=== PATIENT | female | born 1940 | race Caucasian/White ===

== ENCOUNTER → 2017-02-13 | Outpatient (CLI) | payer MEDICARE, BC ==
[~2017-02-13] MED LIST: ACETAMINOPHEN PO; ACETAMINOPHEN500 M3 PO; ADVAIR 100-501 EAC1 INH; ADVAIR 115-21 INH; ADVAIR 250-501 EAC1 IH; ADVAIR 250-501 EACH IH; ADVAIR 2501 DISK W/D; ADVAIR 2501 DISK W/D PO; ALBUTEROL MININEB NEB; ALBUTEROL17 GM; ALBUTEROL17 GM INH; ALBUTEROL20 ml INH; ALENDRONATE SOD70 MG PO; ALPRAZOLAM PO; AMOXICILLIN PO; ASCORBIC ACID500 M2 PO; ASCORBIC ACID500 M3 PO; ASPIRIN; ASPIRIN81 M1 PO; ASPIRIN81 M2 PO; ASPIRINEC PO; ATACAND; ATROVENT HFA12.9 GM INH; AVANDAMET 2 MG/1 TA1 PO; AVANDAMET PO; BACTRIM DS TABL1 TA1 PO; BACTRIM DS TABL1 TAB PO; BIOTIN PO; BUMETANIDE1 MG PO; BUMEX IVP; BUMEX PO; BUMEX1 MG PO; BUMEX2 MG PO; CALCIUM + D 6001 TA1 PO; CALCIUM + VITAM1 TAB PO; CALCIUM 600 +1 EA10 PO; CARDIZEM; CARDIZEM CD PO; CARDIZEM SR PO; CELEXA PO; CELEXA20 M1 PO; CELEXA20 MG PO; CENTRUM240 ML; CIPRO PO; COATED ASPIRIN325 M1 PO; COLACE PO; COMBIVENT INH14.7 GM INH; COMBIVENT MININEB INH; COMBIVENT U/D3 M2 INH; COMBIVENT U/D3 ML INH; COREG6.25 MG PO; COUMADIN5 MG PO; DARVOCET-N 1001 TAB PO; DOCU SOFT100 M1 PO; DOCUSATE SODIU100 MG PO; EFFEXOR XR; EFFEXOR XR PO; ELIQUIS2.5 MG PO; FAMOTIDINE PO; FERRO-TIME325 MG PO; FERROUS SULFATE PO; FISH OIL 1,001000 MG PO; FISH OIL 1,2001 CAP PO; FISH OIL 1,2001 EAC2 PO; FISH OIL 1,2001 EACH PO; FLONASE ALLERG9.9 ML INH; FOLIC ACID; FOLIC ACID PO; FOLIC ACID1 MG PO; FOSAMAX; FOSAMAX PO; FOSAMAX70 MG PO; GLIPIZIDE10 MG/BOTT PO; GLUCOPHAGE500 M1 PO; GLUCOPHAGE500 MG PO; HYDRALAZINE HCL25 MG PO; HYDROCODONE-APA1 T42 PO; IMDUR-ER60 M1 PO; IMDUR-ER60 M2 PO; IMDUR30 MG PO; IRON PO; IRON325 ( 652 PO; ISORDIL PO; ISOSORBIDE DINI30 MG PO; JANUVIA PO; JANUVIA100 MG PO; JANUVIA25 MG; LANTUS100 U/ML; LANTUS100 U/ML INJ; LANTUS100 U/ML SUBQ; LASIX; LASIX PO; LEVAQUIN PO; LEVAQUIN250 MG PO; LEVAQUIN750 MG PO; LEVOTHYROXINE50 MC1 PO; LEVOTHYROXINE50 MCG PO; LIPITOR40 MG PO; LISINOPRIL PO; LOPRESSOR PO; LORTAB 10/500 T1 TAB PO; LORTAB 5/500 TA1 TA2 PO; MACROBID100 MG PO; MAG-OX 400400 M1 PO; MAG-OXIDE400 MG PO; MAGOX 400400 MG PO; MEDROL DOSEPAK4 MG PO; METFORMIN; METFORMIN HCL500 M1 PO; METFORMIN PO; METHOTREXATE2.5 MG PO; METOPROLOL SUC100 MG PO; METOPROLOL SUCC25 MG PO; MIRALAX255 GM PO; NEXIUM PO; NIACIN ER500 MG PO; NIACIN500 M2 PO; NIASPAN PO; NITROGLYCERIN SPRAY PO; NITROGLYCERIN0.4 MG SL; NITROGYLCERIN SUBLINGUAL; NITROSTAT0.4 MG SL; NORCO 10/325 TA1 TAB PO; NOVALOG; NOVOLIN N100 U/ML SUBQ; NOVOLOG100 U/ML; NOVOLOG100 U/ML SUBQ; NOVOLOG100 UNITS/ SUBQ; PACERONE PO; PHENERGAN PO; PLAQUENIL200 MG PO; PLAVIX PO; PRAVACHOL PO; PREDNISONE PO; PREDNISONE10 MG PO; PREVACID PO; PROAIR HFA8.5 GM INH; PROTONIX PO; PYRIDIUM PO; RANITIDINE HCL150 M1 PO; REGLAN PO; SIMVASTATIN40 MG PO; SPIRIVA18 MCG; SPIRIVA18 MCG INH; ST. JOSEPH ASP325 MG PO; SULFAMETHOXAZOL1 TA4; SYMBICORT INH; SYMBICORT80 INH; SYNTHROID PO; THEO-24200 MG PO; THEO-DUR200 MG PO; THEOPHYLLIN; THEOPHYLLIN PO; THEOPHYLLINE A200 M1 PO; TOPROL XL PO; TOPROL XL100 MG PO; TRAMADOL HCL50 M1 PO; TRAMADOL HCL50 M2 PO; TYLENOL #3 PO; TYLOX 5-500 MG1 EACH PO; TYLOX1 CAP 5/50 DOB; ULTRAM PO; VALTREX PO; VICODIN 5/500 T1 TAB PO; VIT B-12 PO; VIT E PO; VITAMIN C PO; VITAMIN C500 M1 PO; VITAMIN D 4001 UDTAB PO; VITAMIN D PO; VITAMIN D400 UNI1 PO; WARFARIN SODIU2.5 M1 PO; ZANTAC150 MG PO; ZESTORETIC PO; ZOCOR PO; ZOCOR20 MG PO; ZOFRAN PO; ZOFRAN8 MG PO; ZYLOPRIM PO; ZYLOPRIM100 MG PO
--- NOTE | ~2017-02-13 | CT2 ---
[facility] A Service of [facility] & [facility] RADIOLOGY TEXT RESULTS PATIENT: COLLETTE LEBLANC LOCATION: [facility] : 39 UNIT #: [id number] AGE: [address]: Adams Taylor MD SEX: F ORDER DR: [id number] [facility] [address] [place], [place] [address] [id number] O MR#: [id number] [facility] #: [id number] NAME: COLLETTE LEBLANC : 1940 SEX: F STUDY DATE/TIME: 02/13/2017 12:07 UNIT: [facility] ROOM: STUDY DESCRIPTION: CT Abd and Pelv W Cont Attending Physician: Adams Taylor M.D. Referring Physician: Adams Taylor M.D. Ordering Physician: Adams Taylor M.D. Primary Care Physician: Moe Feliciano M.D. MEDICAL IMAGING REPORT This report is preliminary unless electronic signature is present EXAM CT of the abdomen and pelvis with contrast. INDICATION Followup lymphoma. Observation of a malignant process. TECHNIQUE CT of the abdomen and pelvis was performed following the administration of IV contrast. Coronal and sagittal reformatted images were obtained. This CT exam was performed with one or more of the following radiation dose reduction techniques: automatic exposure control, adjustment of mA and/or kV according to patient size, and iterative reconstruction. COMPARISON STUDIES Comparison with 08/15/2016. FINDINGS Please refer to the separately dictated CT of the chest for findings above the diaphragm. The liver is unremarkable. The gallbladder is unremarkable. The spleen is normal in size. Stable cysts in the left kidney. Stable 7 mm hyperdense lesion in the right kidney. This is unchanged in Hounsfield units from a noncontrast CT scan from January of last year and is consistent with a hyperdense cysts. The adrenal glands are unremarkable. The pancreas is unremarkable. There is no evidence of lymphadenopathy. PELVIS: The colon is unremarkable. There is no free fluid. There is no evidence of pelvic lymphadenopathy. The bone windows are unremarkable. IMPRESSION No evidence of lymphadenopathy in the abdomen or pelvis. STS. [facility] A Service of [facility] & [facility] RADIOLOGY TEXT RESULTS PATIENT: COLLETTE LEBLANC LOCATION: [facility] : 39 UNIT #: [id number] AGE: [address]: Adams Taylor MD SEX: F ORDER DR: Dictated by... Javier Thapa M.D. THIS IS AN ELECTRONICALLY VERIFIED REPORT Javier Thapa M.D. at 02/14/2017 8:23 AM EMELINA/meghan TD: 02/13/2017 17:07 JOB #: [id number] MEDICAL IMAGING REPORT Page 1 of 1 COPY
--- NOTE | ~2017-02-13 | CT55 ---
[facility] A Service of [facility] RADIOLOGY TEXT RESULTS PATIENT: COLLETTE LEBLANC [facility] UNIT #: [id number] AGE: [address]: Adams Taylor MD SEX: F ORDER DR: [id number] [facility] [address] [place], [place] [address] [id number] O MR#: [id number] [facility] #: [id number] NAME: COLLETTE LEBLANC : 1940 SEX: F STUDY DATE/TIME: 02/13/2017 12:07 UNIT: [facility] ROOM: STUDY DESCRIPTION: CT Chest W Con Attending Physician: Adams Taylor M.D. Referring Physician: Adams Taylor M.D. Ordering Physician: Adams Taylor M.D. Primary Care Physician: Moe Feliciano M.D. MEDICAL IMAGING REPORT This report is preliminary unless electronic signature is present EXAM CT chest. HISTORY Small cell b-cell lymphoma, extranodal and solid organ sites. Restaging. Observation for metastatic disease. TECHNIQUE CT of the thorax utilizing 100 mL Isovue-370 IV contrast. Coronal and sagittal reconstructions were obtained. This CT exam was performed with one or more of the following radiation dose reduction techniques: automatic exposure control, adjustment of mA and/or kV according to patient size, and iterative reconstruction. COMPARISON CT thorax, dated 08/16/2016. FINDINGS No pathologically enlarged mediastinal, hilar, or axillary lymph nodes. There is diffuse atherosclerotic disease of the abdominal aorta with a prominent ductus bump along the inferior margin of the aortic arch. The patient is status post CABG. The heart is enlarged. No pericardial effusion. There has been prior aortic valve replacement. There are small bilateral pleural effusions that have developed in the interval. No pleural nodularity or abnormal enhancement is identified. There are some scattered pulmonary nodules in both lungs. The largest nodule is in the inferior right lobe of the liver. The configuration is somewhat different than on the prior exam; however, the overall size is similar. This measures 1.3 x 1.1 cm, compared to 1.7 x 1.3 cm previously. There is a 0.8 cm pulmonary nodule also in the right lower lobe, which is STS. [facility] A Service of [facility] RADIOLOGY TEXT RESULTS PATIENT: COLLETTE LEBLANC LOCATION: [facility] : 39 UNIT #: [id number] AGE: [address]: Adams Taylor MD SEX: F ORDER DR: unchanged. Please refer to a separately dictated report for details on the abdomen. No new osseous abnormalities. There is partial nonunion of the median sternotomy. The mid portion of the sternum has healed. IMPRESSION 1. Development of small bilateral pleural effusions. 2. Small pulmonary nodules in both lungs are similar to the prior study of 08/15/2016. Dictated by... Boogie Fay M.D. THIS IS AN ELECTRONICALLY VERIFIED REPORT Boogie Fay M.D. at 02/13/2017 6:23 PM BATSHEVA/dulce TD: 02/13/2017 16:39 JOB #: [id number] MEDICAL IMAGING REPORT Page 1 of 1 COPY
[2017-02-13 14:30] LABS: POC - CREATININE 1.07 mg/dL (0.44-1.03)
== END | disposition home or self-care (01) ==
LOC: CCAT 10:47
PROVIDERS: Internal Medicine Hematology
DX: C83.09 Small cell B-cell lymphoma, extranodal and solid organ sites (principal); J90 Pleural effusion, not elsewhere classified; R91.8 Other nonspecific abnormal finding of lung field
CPT/HCPCS: 71260; 74177; 82565; Q9967

== ENCOUNTER 2017-07-18 20:25 | Inpatient (IN) | payer MEDICARE, BC ==
[~2017-07-18] VITALS: Ht 147.3 cm; Wt 101.2 kg
--- NOTE | ~2017-07-18 | CO ---
Unit #: [id number] #: [id number] Patient: ERUM PRASAD [id number] [address] [place], [place] [address] [id number] I MR#: [id number] NAME: ERUM PRASAD ROOM: 569 Age: 76 Sex: F Admission Date: 07/19/2017 : 1940 Attending Physician: Mani De Leon M.D. Primary Care Physician: Mani De Leon M.D. Consultation Date: 07/19/2017 CONSULTATION REPORT REASON FOR CONSULTATION Renal insufficiency. Thank you very much for asking me to see this patient in consultation. HISTORY OF PRESENT ILLNESS Ms. Prasad is a 76-year-old female, whom we saw in the past with acute renal failure whose baseline creatinine in reviewing is probably realistically about a 1.2 plus or minus range, who presented to the hospital with several days of increased shortness of breath, chest pain, cough, questionable nausea, questionable increased urinary frequency, who admitted with a probable congestive heart failure with atrial fib/flutter with rapid ventricular response. We were asked to see the patient secondary to creatinine of 0.9 when initial test is up to 1.3 this morning with potassium of 5.3. The patient denies any nonsteroidals at home. She denies any fevers or chills. She states she has had some intermittent swelling. PAST MEDICAL HISTORY History of atherosclerotic coronary artery disease, history of pericardial effusion in the past and window, she is status post coronary artery bypass graft, history of congestive heart failure, history of aortic valve replacement, history of atrial fib/flutter, history of rheumatoid arthritis, history of diabetes mellitus x2, history of probable chronic kidney disease, stage 3, history of COPD, history of obstructive sleep apnea, history of hyperlipidemia, history of gastroparesis, history of lymphoma in the past, status post PEG in the past, status post knee replacement in the past. ALLERGIES No known drug allergies. SOCIAL HISTORY She is . No smoking, although, previous smoker in the past. No alcohol. FAMILY HISTORY Negative for kidney disease. MEDICATIONS Currently include amiodarone drip, dobutamine drip, Lipitor, Eliquis, Imdur, folic acid, aspirin, vitamin C, Zyloprim 100 mg a day, Pepcid 20 mg b.i.d., Plaquenil 200 mg b.i.d., iron pill, Bumex was started at 2 mg IV q.12, insulin, Synthroid, methotrexate. Unit #: [id number] #: [id number] Patient: ERUM PRASAD REVIEW OF SYSTEMS As mentioned in the HPI. She denies any visual problems, sinus problems, productive cough. She denies any hemoptysis. No neck pain, neck stiffness, intermittent chest pain with shortness of breath. Has some increased abdominal swelling. She has some increased lower extremity swelling. No recent seizures, strokes, or skin rashes. PHYSICAL EXAMINATION GENERAL: She is alert and oriented. VITAL SIGNS: T-max 98.2, pulse is 95 to 134, blood pressure 114 to 143 over 70 to 90 and has 3851 reported out x1. HEENT: She is normocephalic and atraumatic. Pupils are equal, round, and reactive to light. Extraocular muscles are intact. Hearing appears normal. Mouth is dry. No erythema. No exudate. NECK: Supple. No JVD. CARDIAC: She has an irregular rhythm without a rub. She has about 1/6 to 2/6 systolic ejection murmur. LUNGS: Decreased breath sounds at the bases and a few bilateral rales at the bases. ABDOMEN: Overweight. Distended. Bowel sounds positive. Tight and nontender. She has positive body edema. EXTREMITIES: She has mild lower extremity swelling. Pulses are intact in lower extremities. JOINTS: No joint pain or joint swelling. SKIN: No acute rashes. NEUROLOGIC: Appears to be intact motor and sensory grossly. : Lizarraga catheter in place. Unsure how much urine was out when it was placed earlier today. DIAGNOSTIC STUDIES LABORATORY RESULTS: Sodium 139, potassium 5.3, chloride is 97, bicarb is 32, BUN and creatinine 36 and 1.3, glucose of 319. pH is 7.437 in the blood, pCO2 of 55, PO2 of 100 on 3 L. Calcium is 9.7. Albumin is 3.3. CPK 14. Troponin 0.03. BNP is 262. INR is 1.2. Hemoglobin 12.9, white count 7300, platelets 200,000. CARDIOVASCULAR STUDIES: She had an echo done in 11/2016 that showed an EF around 30% to 35% with mitral regurg. IMAGING STUDIES: Chest x-ray here showed cardiomegaly, increased vascular congestion, questionable infiltrate, and right pleural effusion. ASSESSMENT AND PLAN 1. Chronic kidney disease probably stage 3, with questionable acute renal failure, certainly creatinine 0.9 when she came in, but her renal function has been running with creatinine around 1.2 to 1.5 over the last year. Certainly, 1.3 is a little bit worse from admission, but I certainly agree with Lizarraga catheter, increased IV diuresis, and dobutamine. She will check UA culture and sensitivity. We will check a random urine protein and creatinine to make sure she is not severely nephrotic contributing to her fluid overloaded as well. We will check labs in the morning. We will continue to follow. Certainly, would avoid nonsteroidals, LOCKE-2 inhibitors, long-term use of PPIs, contrast dye if possible. 2. Hyperkalemia. The patient with increased potassium most likely related to hyperglycemia and renal insufficiency. We will recheck in the morning. The patient is on insulin sliding scale. 3. History of congestive heart failure with decreased EF. Atrial fib/flutter with rapid ventricular response still. Unit #: [id number] #: [id number] Patient: ERUM PRASAD 4. Diabetes mellitus with increased glucose. 5. Chronic obstructive pulmonary disease. 6. Obstructive sleep apnea. Dictated by..Brigitte Townsend M.D. SELENE/joon TD: 07/20/2017 12:48 JOB #: [id number] CONSULTATION REPORT Page 1 of 1 X Eva Townsend MD X CONSULTATION REPORT
--- NOTE | ~2017-07-18 | BMI ---
[facility] Nutrition Therapy DATE: 07/19/17 Patient: ERUM SHULTZ DEANA Physician: BRENNON Address: [address] Room/Bed: [address] [place] [address], Zip: [place] [address] Admit Date: 07/19/17 Date of : 39 Height: 4 10 Weight: 196 89 HIGH BMI NOTE: DX: 76 Y.O. FEMALE ADMITTED FOR CHF ANTHROPOMETRICS: 4'10", WT: 196# (89 KG), BMI: 41.0 DIET: CC+HH+ FLUID RESTRICTION RECOMMENDATIONS: 1. CONTINUE CURRENT DIET ORDER ABOVE TO PROMOTE GRADUAL WEIGHT LOSS TOWARDS HEALTHY BMI (19.0-25.0) OR +/-10%IBW RD WILL F/U PER PROTOCOL Respectfully, NATASHA GRANT MS, RD, LD Food and Nutritional Services [facility] cc: client file
--- NOTE | ~2017-07-18 | EKG ---
PATIENT: ERUM LEBLANC UNIT #: [id number] Ventricular Rate: 108 BPM Atrial Rate: 127 BPM QRS Duration: 146 ms Q-T Interval: 378 ms QTC Calculation(Bezet): 506 ms Calculated R [place]: 146 degrees Calculated T [place]: 43 degrees Diagnosis Line: Atrial fibrillation with rapid ventricular Diagnosis Line: response Diagnosis Line: Right bundle branch block Diagnosis Line: Left posterior fascicular block Diagnosis Line: Bifascicular block Diagnosis Line: Abnormal ECG Diagnosis Line: When compared with ECG of 21-JUL-2017 19:26, Diagnosis Line: (unconfirmed) Diagnosis Line: No significant change was found Diagnosis Line: Confirmed by CYN AGUILAR MD ([id number]) on 07/26/2017 Diagnosis Line: 7:40:25 AM INTERPRETING MD: LAUREN MONACO
--- NOTE | ~2017-07-18 | EKG ---
PATIENT: ERUM LEBLANC UNIT #: [id number] Ventricular Rate: 115 BPM Atrial Rate: 117 BPM QRS Duration: 140 ms Q-T Interval: 380 ms QTC Calculation(Bezet): 525 ms Calculated R [place]: 152 degrees Calculated T [place]: 23 degrees Diagnosis Line: Atrial fibrillation with rapid ventricular Diagnosis Line: response Diagnosis Line: Right bundle branch block Diagnosis Line: Left posterior fascicular block Diagnosis Line: Bifascicular block Diagnosis Line: Abnormal ECG Diagnosis Line: When compared with ECG of 20-JUL-2017 05:39, Diagnosis Line: (unconfirmed) Diagnosis Line: Atrial fibrillation has replaced Atrial flutter Diagnosis Line: Right bundle branch block is now Present Diagnosis Line: Confirmed by CYN AGUILAR MD ([id number]) on 07/26/2017 Diagnosis Line: 7:32:31 AM INTERPRETING MD: LAUREN MONACO
--- NOTE | ~2017-07-18 | HP ---
Unit #: [id number] #: [id number] Patient: ERUM LEBLANC [id number] [address] [place], [place] [address] [id number] I MR#: [id number] NAME: ERUM LEBLANC ROOM: 569 Age: 76 Sex: F Admission Date: 07/19/2017 : 1940 Attending Physician: Mani De Leon M.D. Primary Care Physician: Mani De Leon M.D. HISTORY AND PHYSICAL HISTORY OF PRESENT ILLNESS 76-year-old white female with extensive past medical history, chronic systolic CHF, multivessel coronary artery disease, status post coronary artery bypass grafting, porcine aortic valve replacement, atrial flutter, rheumatoid arthritis, type 2 diabetes mellitus, chronic kidney disease, stage 3, COPD, obstructive sleep apnea syndrome, hyperlipidemia, hypothyroidism, morbid obesity, gastroparesis, fatty liver disease, history of lymphoma, presents to the emergency room with shortness of air for four days and chest pain. She is a very poor historian in the ER. She appeared to be stable but they felt she needed to be admitted because of her high risk. Her O2 sat was originally 91%, on 3 L after one dose of Solu-Medrol and one dose of Bumex it came up immediately to 97%. She doesn't really state that the chest pain is with or without exertion, with or without deep breath. She has had a cough but it is unclear how chronic or changed that is. She denies having a fever but states that she has had some nausea and vomiting, hypoglycemia, frequent urination and has a multitude of other symptoms that don't seem relevant to the history of present illness. In any case she is admitted for further evaluation and therapy. ALLERGIES No known drug allergies. MEDICATIONS PRIOR TO ADMISSION 1. Albuterol two puffs q.4 hours. 2. Fosamax 70 mg weekly. 3. Zyloprim 100 mg daily. 4. Vitamin C 500 mg daily. 5. Aspirin 81 mg daily. 6. Symbicort 80/4.5 two puffs q.12 hours. 7. Bumex 1 mg p.o. b.i.d. 8. Celexa 20 mg daily. 9. Colace 100 mg twice daily. 10. Ferrous sulfate 325 mg b.i.d. 11. Flonase nasal spray daily. 12. Folic acid 1 mg daily. 13. Plaquenil 200 mg b.i.d. 14. NovoLog on sliding scale t.i.d. before meals, 15. Imdur ER 120 mg daily. 16. Synthroid 50 mcg daily. 17. Magnesium oxide 400 mg b.i.d. 18. Metformin 500 mg b.i.d. 19. Methotrexate 2.5 mg weekly. 20. Toprol XL 25 mg daily. Unit #: [id number] #: [id number] Patient: ERUM LEBLANC 21. Niacin ER 500 mg q.h.s. 22. Nitrostat p.r.n. 23. Zantac 150 mg b.i.d. 24. Zocor 40 mg daily. 25. Theophylline 200 mg b.i.d. 26. Tramadol 50 mg t.i.d. p.r.n. 27. Coumadin 5 mg daily. 28. Lantus 50 units subcu q.h.s. PAST MEDICAL HISTORY 1. Chronic systolic CHF. 2. Multivessel coronary artery disease, status post coronary artery bypass grafting and Porcine aortic valve replacement. 3. Rheumatoid arthritis. 4. Type 2 diabetes mellitus. 5. Chronic kidney disease. 6. COPD. 7. Obstructive sleep apnea syndrome. 8. Hyperlipidemia. 9. Hypothyroidism. 10. History of lymphoma. 11. Gastroparesis. 12. Fatty liver disease. PAST SURGICAL HISTORY 1. . 2. Hemorrhoidectomy. 3. Right knee repair. 4. Cataract surgery. 5. Breast cyst removed. 6. Lung biopsy. 7. Pericardial window. 8. Cardiac stents. 9. Three-vessel coronary artery bypass grafting. 10. Right foot bone spur removed. 11. Lithotripsy. 12. Porcine aortic valve replacement. SOCIAL HISTORY . Nonsmoker. Nondrinker. No street drug use. FAMILY HISTORY Family history is noncontributory. PHYSICAL EXAMINATION GENERAL: She is awake, alert, oriented x3 in no acute distress. Does not appear dyspneic whatsoever, very talkative but again a poor historian. VITAL SIGNS: O2 sats currently 97% to 98% on her home dose of 3 L nasal cannula. HEENT: Otherwise unremarkable except for finch facies. NECK: Neck was supple without JVD, bruits, adenopathy or thyromegaly. CHEST: Diffusely decreased breath sounds but clear to auscultation. CARDIOVASCULAR: Heart has a regular rate and rhythm without any murmurs, rubs or gallops. ABDOMEN: Abdomen was large, soft, nondistended, nontender with positive bowel sounds. EXTREMITIES: Extremities showed 2+ pitting edema of the bilateral lower extremities. Unit #: [id number] #: [id number] Patient: ERUM LEBLANC /RECTAL: Deferred. NEUROLOGIC: Exam is grossly intact. DIAGNOSTIC STUDIES LAB VALUES: CBC within normal limits. PT/INR was 1.6, PTT 26, albumin 3.3. Sodium 134, CO2 32, random blood sugar 158, BUN 35, BNP 262, cardiac enzymes normal x2 sets. IMAGING STUDIES: Chest x-ray - mild CHF. Small right pleural effusion, status post coronary artery bypass grafting. ABG on 3 L show pH of 7.437, PCO2 of 55, and a PAO2 of 100. CARDIOLOGY STUDIES: EKG was read as a sinus tachycardiac, though it probably is underlying atrial fibrillation with 2:1 block with the P waves being interpreted with a QRS complex. This is very unusual morphology. There is a right bundle branch block, left anterior fascicular block. IMPRESSION 1. Shortness of air. 2. Mild exacerbation of systolic CHF. 3. COPD. 4. Chest pain. 5. Coronary disease. 6. Status post coronary artery bypass grafting. 7. Status post porcine aortic valve replacement. 8. A-flutter. 9. Subtherapeutic ProTime. 10. Type 2 diabetes mellitus. 11. Chronic kidney disease. 12. Obstructive sleep apnea syndrome. 13. Morbid obesity. 14. History of lymphoma. 15. Fatty liver disease. 16. Gastroparesis. 17. Rheumatoid arthritis. PLAN Hold Lantus because of her low blood sugars. Patient was ordered to have Lovenox but refuses. Will use SCDs for DVT prophylaxis. Follow her ProTimes, renal function, and consult cardiology. CT scan of the abdomen and pelvis, check an amylase and lipase. Check a theophylline level and DC theophylline as it is not indicated at this time. Will repeat her EKG this morning since her heart rate is down. Further evaluation pending results of the above. Dictated by Mani De Leon M.D. MISAEL/crow TD: 07/19/2017 08:28 JOB #: [id number] Unit #: [id number] #: [id number] Patient: ERUM LEBLANC HISTORY AND PHYSICAL Page 1 of 1 X Mani De Leon MD X HISTORY AND PHYSICAL
--- NOTE | ~2017-07-18 | A ---
[facility] Nutrition Therapy DATE: 07/26/17 Patient: ERUM SHULTZ DEANA Physician: BRENNON Address: [address] Room/Bed: [address] [place] [address], Zip: [place] [address] Admit Date: 07/21/17 Date of : 39 Height: 4 10 Weight: 220 100 NUTRITIONAL ASSESSMENT: REASON: Diet education consult (2 g NA) Admitting dx: Pt is a 76 y/o female admitted with hypoglcyemia and CHF exacerbation PMH: CHF, T2DM, hypothyroidism, CAD, COPD, HLD, gastroparesis, RA, fatty liver disease, lymphoma, stage III CKD, MAHI, morbid obesity Anthropometrics: Ht:58" Wt:196-220# BMI:41-46 Labs: Gluc:137, BUN:93, Creat:1.7, POC:39-236, A1C:9.3 (11/25/16), GFR:28.6 Meds: IV Abx, Synthroid, Levemir, high SSI, Bumetanide, Colace, Folic Acid, Pepcid, Mag-Ox, Vit C, Methotrexate, Fe gluconate I/O & Bowel function: BM 07/25 Skin Integrity: Scar- midline/chest/RLE/ABD/RT hand Edema- BLE +1/generazlied body Assessment: Chart reviewed, events noted. Pt was seen for a 2 g Na diet education. Composite Technician and RD were able to speak to the pt at bedside, was in the room also. Pt was encouraged to eat fresh, non-processed foods and to check food labels for Na content. Pt reports that they do not eat out often because it is expensive. Pt's daughter reportedly cooks for her, mainly using canned/frozen foods. RD educated pt on restricting her fluids and how to tell if she is retaining. Of note, pt received previous diet education on 01/25/17. Pt reported no questions at this time. Education handouts were left for the pt to take home. RD will follow-up per protocol. Dx: Excessive oral intake r/t lifestyle, food choices AEB BMI 41-46, morbid obesity. Intervention: See RD recs below Monitoring, Evaluation and Goals: 1. PO intake compliant with healthy heart diet restriction. 2. Promote gradual weight loss towards a healthy BMI. 3. Labs WNL. 4. Promote regular BM's. Monitor: criteria to determine if above goals met. [facility] Nutrition Therapy DATE: 07/26/17 Patient: ERUM SHULTZ DEANA Physician: BRENNON Address: [address] Room/Bed: [address] [place] [address], Zip: [place] [address] Admit Date: 07/21/17 Date of : 39 Height: 4 10 Weight: 220 100 Recommendations: 1. Continue with healthy heart diet to promote gradual weight loss towards a healthy BMI as pt is morbidly obese. 2. Obtain updated A1C (last noted is from 11/25/16) Pt is mildly compromised RD to follow Respectfully, Marguerite Reyes, Manager Customer Aminata Rock, RD, LD Food and Nutritional Services [facility] cc: client file
--- NOTE | ~2017-07-18 | EKG ---
PATIENT: ERUM LEBLANC UNIT #: [id number] Ventricular Rate: 122 BPM Atrial Rate: 122 BPM P-R Interval: 168 ms QRS Duration: 140 ms Q-T Interval: 342 ms QTC Calculation(Bezet): 487 ms Calculated R [place]: 171 degrees Calculated T [place]: 18 degrees Diagnosis Line: Sinus tachycardia Diagnosis Line: Right bundle branch block with repolarization Diagnosis Line: abnormality Diagnosis Line: Left posterior fascicular block Diagnosis Line: Bifascicular block Diagnosis Line: Abnormal ECG Diagnosis Line: When compared with ECG of 21-JUL-2017 02:57, Diagnosis Line: (unconfirmed) Diagnosis Line: Sinus rhythm has replaced Atrial fibrillation Diagnosis Line: Confirmed by ALVARO TELLES MD ([id number]) on 07/23/2017 Diagnosis Line: 11:02:34 PM INTERPRETING MD: KOKI MONACO
--- NOTE | ~2017-07-18 | DS ---
Unit #: [id number] #: [id number] Patient: ERUM LEBLANC [id number] [address] [address] [id number] I MR#: [id number] NAME: ERUM LEBLANC ROOM: 569 Age: 76 Sex: F Admission Date: 07/21/2017 : 1940 Discharge Date: 07/28/2017 Attending Physician: Mani De Leon M.D. Primary Care Physician: Mani De Leon M.D. DISCHARGE SUMMARY PRINCIPAL DISCHARGE DIAGNOSES 1. Acute on chronic respiratory failure. 2. Acute on chronic systolic congestive heart failure. 3. Severe chronic obstructive pulmonary disease, oxygen dependent. 4. Coronary artery disease, status post coronary artery bypass grafting. 5. Porcine aortic valve replacement. 6. Rheumatoid arthritis. 7. Acute on chronic kidney disease. 8. Type 2 diabetes mellitus. 9. Obstructive sleep apnea syndrome. 10. Hyperlipidemia. 11. Hypothyroidism. 12. History of lymphoma. 13. Gastroparesis. 14. Fatty liver disease. 15. Extended-spectrum beta-lactamase urinary tract infection. 16. Atrial fibrillation/flutter. PROCEDURE PICC line placement. CONSULTANTS 1. Dr. Ba Zuniga. 2. Dr. Martínez Townsend. 3. Dr. Kevin Fortune. REASON FOR HOSPITALIZATION Patient is a 76-year-old obese white female with an extensive past medical history, chronic systolic CHF, multivessel coronary artery disease, coronary artery bypass grafting, porcine aortic valve replacement, atrial flutter, rheumatoid arthritis, type 2 diabetes mellitus, chronic kidney disease stage 3, COPD, obstructive sleep apnea syndrome, hyperlipidemia, hypothyroidism, morbid obesity, gastroparesis, fatty liver disease, and history of lymphoma, who presented to the emergency room with shortness of air for four days, as well as chest pain. Her chest pain did not seem to be anginal. O2 saturations were low on three liters in the ER but quickly improved with Solu-Medrol and IV diuretics. CBC on admission was normal. PT-INR was subtherapeutic at 1.6. BUN was 35. BNP 262. Cardiac enzymes normal. Chest x-ray mild CHF, small right pleural effusion. On three liters, her pH was 7.437, PCO2 of 55, and PAO2 of 100. EKG showed AFib/flutter, and the patient was admitted. HOSPITAL COURSE The patient was admitted to a monitored bed. She was seen in pulmonary Unit #: [id number] #: [id number] Patient: ERUM LEBLANC consultation by Dr. Fortune and cardiac consultation by Dr. Zuniga. Her Lantus was held because of low blood sugars. She was ordered to have Lovenox but refused. SCDs were placed for DVT prophylaxis. Pro-times were followed, and renal function was followed. She was started on IV Bumex. Cardiology was consulted and placed the patient on Dobutrex. Because of dysuria, a urine culture was sent, and she was empirically started on Rocephin. She was placed on IV Solu-Medrol as well. Cardiology recommended Eliquis, and she was started appropriately on this. Adjustments were made in her antihypertensives. Previous echo done in November of this year showed an EF of 30% to 35%. Nephrology was consulted as well, and Dr. Townsend saw the patient. Her respiratory status slowly but surely improved. Renal function progressively worsened with diuresis. Patient was also placed on a fluid restriction and sodium-restricted diet. She was started on amiodarone after the amiodarone drip was discontinued. She had an OT/PT consult. Urine culture grew ESBL, and she was switched to meropenem. She was eventually started back on regular doses of insulin which had to be held occasionally because of hypoglycemia. Her Lizarraga was discontinued on the . A PICC line was placed for IV access with plans of sending her home on IV antibiotics, but she has finished a course, and a repeat urinalysis is essentially clear and repeat urine culture was negative. She developed some rapidly worsening renal function with a BUN all the way up to 95, and her diuretics were held and then resumed at a smaller dose. Currently, her renal function is improving. Her potassium was slightly high this morning, but she is on no Aldactone or any other potassium-sparing diuretics. Today, she remains afebrile. Her vital signs are within normal limits. O2 saturations are 98% on her home dose of three liters. Blood sugars are under fair control for the patient's condition. Her BMP this morning again shows a potassium of 5.2, CO2 of 35, random blood sugar of 148, BUN 74, creatinine 1.6, and GFR at 30.8. She is being discharged home. DISCHARGE INSTRUCTIONS 1. She is to follow up with Dr. Feliciano next week and follow up with Dr. Castro in one month. 2. [facility] is to follow for OT/PT and to draw a BMP on Monday and fax it to Dr. Feliciano's office to recheck particularly her potassium and her renal function as well. 3. She is on a 1600 mL, two gram sodium, constant carbohydrate diet. CURRENT MEDICATIONS 1. Albuterol 2 puffs q.4 hours p.r.n. 2. Symbicort 80/4.5 at 2 puffs q.12. 3. Amiodarone 400 mg for an additional 24 hours b.i.d., then 200 mg b.i.d. for 5 days, then 200 mg daily. 4. Magnesium oxide 400 mg b.i.d. 5. Flonase nasal spray 2 sprays in both nostrils daily. 6. Eliquis 2.5 mg p.o. b.i.d. 7. Celexa 20 mg p.o. daily. 8. Plaquenil 200 mg b.i.d. 9. Methotrexate 2.5 mg dose unknown on Monday. 10. Lopressor 25 mg b.i.d. 11. Colace 100 mg b.i.d. 12. Bumex 2 mg b.i.d. 13. Zocor 40 mg at bedtime. 14. Hydralazine 25 mg b.i.d. Unit #: [id number] #: [id number] Patient: ERUM LEBLANC 15. Sliding scale insulin a.c. and at bedtime. 16. Lantus 30 units subcutaneous at bedtime. 17. Ferrous gluconate 325 mg b.i.d. 18. Zantac 150 mg b.i.d. 19. Fosamax 70 mg weekly. 20. Zyloprim 100 mg daily. 21. Aspirin 81 mg daily. 22. Tramadol 50 mg t.i.d. p.r.n. for pain. 23. Synthroid 50 mcg p.o. daily. 24. Imdur ER 120 mg p.o. daily. 25. Nitrostat 0.4 mg sublingual p.r.n. for chest pain. 26. Folic acid 1 mg daily. 27. Vitamin C 500 mg daily. 28. O2 at 3 L nasal cannula continuously. 1. Dictated by... Mani De Leon M.D. MISAEL/ria TD: 08/01/2017 14:10 JOB #: [id number] DISCHARGE SUMMARY Page 1 of 1 X Mani De Leon MD X DISCHARGE SUMMARY
--- NOTE | ~2017-07-18 | CO ---
Unit #: [id number] #: [id number] Patient: ERUM PRASAD [id number] [address] [place], [place] [address] [id number] I MR#: [id number] NAME: ERUM PRASAD ROOM: 569 Age: 76 Sex: F Admission Date: 07/19/2017 : 1940 Attending Physician: Mani De Leon M.D. Primary Care Physician: Mani De Leon M.D. Consultation Date: 07/19/2017 CONSULTATION REPORT REASON FOR CONSULTATION Respiratory failure and COPD. HISTORY OF PRESENT ILLNESS Ms. Prasad is a 76-year-old female with multiple medical problems including COPD and chronic respiratory failure as well as sleep apnea, intolerant to CPAP, who Dr. Casiano has seen her in the past. Her history is extremely vague. She apparently has had shortness of breath for some time. She also had chest pain "three times today." EKG has shown atrial fibrillation. She has severe left ventricular dysfunction with marked edema and pulmonary edema. She has been placed on dobutamine and we were asked to evaluate the patient. She has had occasional wheeze, no mucopurulent sputum, no fever. She denies any hemoptysis. PAST MEDICAL HISTORY Remarkable for COPD; chronic respiratory failure, on oxygen at home; obstructive sleep apnea, noncompliant with CPAP; coronary artery disease; atrial fibrillation; aortic valve replacement; rheumatoid arthritis; diabetes; chronic kidney disease; hyperlipidemia; hypothyroidism; and gastroparesis. MEDICATIONS AT HOME Symbicort is listed, but the family states she is on Advair. The patient cannot tell me what her medicines are. Other medicines per med rec sheet. Albuterol, Fosamax, Zyloprim, ascorbic acid, aspirin, Bumex, Celexa, Colace, iron, Flonase, folic acid, Plaquenil, Imdur, insulin, Synthroid, magnesium, metformin, methotrexate, Toprol, tramadol, Coumadin, Lantus insulin, niacin, nitroglycerin, Zantac, Zocor, and theophylline. ALLERGIES No known medical allergies. SOCIAL HISTORY Quit smoking many years ago. FAMILY HISTORY No definite familial lung disease. REVIEW OF SYSTEMS No chest pain currently, although she did have chest pain several times today. No fever, chills, or weight loss. She cannot wear her CPAP. No abdominal pain, melena, or hematochezia. She has had edema noted. No focal weakness or paresthesias. Further review of systems negative. Unit #: [id number] #: [id number] Patient: ERUM PRASAD PHYSICAL EXAMINATION GENERAL: Reveals a patient, who is in no acute distress. Wearing oxygen at approximately 3 L and eating dinner. VITAL SIGNS: She is afebrile, pulse is 130, respiratory rate is 16, blood pressure is 120/66. 4 feet 10 inches and 196 pounds, BMI is 45. HEENT: Pupils equal, round, and reactive to light. Sclerae anicteric. Head atraumatic. NECK: Supple. No supraclavicular or cervical adenopathy appreciated. Mallampati class IV oropharynx. CHEST: No wheeze or stridor. No consolidation. Distant heart tones. CARDIAC: Reveals a fairly regular rhythm. Soft murmur. No definite gallop. ABDOMEN: Soft and nontender. No hepatomegaly or rebound. She has marked abdominal wall and sacral edema. EXTREMITIES: Edema. No calf tenderness. No clubbing or cyanosis. SKIN: Warm and dry without rash or diaphoresis. NEUROLOGIC: Grossly intact. No focal motor or sensory deficits. DIAGNOSTIC STUDIES LABORATORY RESULTS: Arterial blood gas; pH is 7.43, pCO2 of 55, PO2 of 100 on 3 L. BUN is 36, creatinine is 1.3, blood sugar is 319. BNP 262. INR normal. Cardiac enzymes negative. CBC normal. Chest x-ray, bilateral pleural effusions, congestive heart failure. CT scan of the abdomen, small bilateral pleural effusions, evidence of congestive heart failure. EKG appears to be atrial flutter, approximately 2:1. IMPRESSION 1. Respiratory failure. 2. Congestive heart failure. 3. Chronic obstructive pulmonary disease without active bronchospasm. 4. Obstructive sleep apnea, intolerant to CPAP. 5. Anasarca, suspect at least in part to untreated sleep apnea. 6. Atrial fibrillation. 7. Diabetes. 8. Chronic kidney disease. 9. Medical problems listed above. PLAN Maximize pulmonary status, but I will try to avoid steroids given her diabetes and hyperglycemia. There was no obvious bronchospasm currently. Agree with dobutamine and diuresis. Continue Dulera and nebulized bronchodilators. Agree with discontinuing theophylline both here and at discharge. Consider outpatient re-evaluation of sleep apnea. Thank you very much for allowing me to participate in the care of Ms. Prasad. Dictated by... Kevin Fortune M.D. OSORIO/joon TD: 07/20/2017 15:52 JOB #: [id number] CC: China Cormier M.D. Unit #: [id number] #: [id number] Patient: ERUM PRASAD CONSULTATION REPORT Page 1 of 1 X Kevin Fortune MD X CONSULTATION REPORT
--- NOTE | ~2017-07-18 | EKG ---
PATIENT: ERUM LEBLANC UNIT #: [id number] Ventricular Rate: 128 BPM Atrial Rate: 44 BPM QRS Duration: 140 ms Q-T Interval: 340 ms QTC Calculation(Bezet): 496 ms Calculated R Liberty: 179 degrees Calculated T Liberty: 0 degrees Diagnosis Line: Undetermined rhythm Cannot rule out Atrial flutter Diagnosis Line: with 2 to 1 block Diagnosis Line: Right bundle branch block Diagnosis Line: Left posterior fascicular block Diagnosis Line: Bifascicular block Diagnosis Line: Cannot rule out Inferior infarct , age Diagnosis Line: undetermined Diagnosis Line: Abnormal ECG Diagnosis Line: When compared with ECG of 19-JUL-2017 08:08, Diagnosis Line: (unconfirmed) Diagnosis Line: Current undetermined rhythm precludes rhythm Diagnosis Line: comparison, needs review Diagnosis Line: (RBBB and left posterior fascicular block) is now Diagnosis Line: Present Diagnosis Line: Criteria for Septal infarct are no longer Present Diagnosis Line: Confirmed by CYN AGUILAR MD ([id number]) on 07/19/2017 Diagnosis Line: 5:01:57 PM INTERPRETING MD: LAUREN MONACO
--- NOTE | ~2017-07-18 | CT4 ---
[facility]. [facility] A Service of [facility] RADIOLOGY TEXT RESULTS PATIENT: ERUM LEBLANC [facility] 569-01 : [birth year] UNIT #: [id number] AGE: [address]: Mani De Leon MD SEX: F ORDER DR: [id number] [facility] [address] [place], [place] [address] [id number] I MR#: [id number] Acc #: [id number] NAME: ERUM LEBLANC : 1940 SEX: F STUDY DATE/TIME: 07/19/2017 15:40 UNIT: [facility] ROOM: [facility] STUDY DESCRIPTION: CT Abd and Pelv Wo Cont Attending Physician: Mani De Leon M.D. Ordering Physician: Mani De Leon M.D. Primary Care Physician: Mani De Leon M.D. MEDICAL IMAGING REPORT This report is preliminary unless electronic signature is present EXAM CT abdomen and pelvis without contrast INDICATION Nausea and vomiting for 5 days. History of kidney stones. COMPARISON 02/13/2017 FINDINGS Axial 5 mm images were obtained through the abdomen and pelvis with oral contrast only. Sagittal and coronal reconstructions were generated. This CT exam was performed with one or more of the following radiation dose reduction techniques: automatic exposure control, adjustment of mA and/or kV according to patient size, and iterative reconstruction. FINDINGS There are small loculated pleural effusions bilaterally. There is a small amount of ascites in the anterior abdomen and pelvis. The liver, spleen, pancreas, adrenal glands and kidneys are normal except for small exophytic right renal lesion measuring about 1 cm in diameter and lower pole left renal cyst, both of which were seen on the prior study. The lower pole cyst is about 2.5 cm to 3 cm in diameter. The bowel is normal except for sigmoid diverticula. The bladder is collapsed around a Lizarraga catheter and the prostate gland is normal. The bones are unremarkable. IMPRESSION 1. Small bilateral loculated pleural effusions. 2. Small amount of ascites. 3. Stable renal cysts. 4. No acute abnormalities. [facility] A Service of [facility] RADIOLOGY TEXT RESULTS PATIENT: ERUM LEBLANC LOCATION: [facility]5 569-01 : 39 UNIT #: [id number] AGE: [address]: Mani De Leon MD SEX: F ORDER DR: Dictated by... Mando Israel M.D. THIS IS AN ELECTRONICALLY VERIFIED REPORT Mando Israel M.D. at 07/20/2017 7:21 AM CYNTHIA/lincoln TD: 07/20/2017 03:19 JOB #: [id number] MEDICAL IMAGING REPORT Page 1 of 1 COPY
--- NOTE | ~2017-07-18 | CO ---
Unit #: [id number] #: [id number] Patient: ERUM LEBLANC [id number] [address] [place], [place] [address] [id number] I MR#: [id number] NAME: ERUM LEBLANC ROOM: 569 Age: 76 Sex: F Admission Date: 07/19/2017 : 1940 Attending Physician: Mani De Leon M.D. Primary Care Physician: Mani De Leon M.D. Consultation Date: 07/19/2017 CONSULTATION REPORT REASON FOR CONSULTATION CHF. HISTORY OF PRESENT ILLNESS This is a pleasant 76-year-old female, who typically follows with Dr. Melo. She has had a past medical history of paroxysmal atrial fib/flutter, on chronic anticoagulation with Coumadin; chronic systolic CHF; COPD, on home oxygen therapy; chronic respiratory failure; obstructive sleep apnea; hypertension; hyperlipidemia; diabetes mellitus; CAD with history of CABG and porcine AVR in 2009, also status post multiple stent placements; RA; osteoporosis; CKD; and lymphoma. The patient tells me she was at home on Monday in her typical state of health when she developed palpitations. These were associated with shortness of breath and she felt like she could not get her breath as well as some chest pain. At that time, her daughter encouraged her to come to the emergency room; however, the patient declined. Over the next few days, the patient still was having some complaints of intermittent palpitations and difficulty with her breathing. The daughter, therefore, Went ahead and finally convinced her to come to the emergency room for evaluation. The patient herself is somewhat of a poor historian. All information was gathered from chart review and prior medical records as well as the nursing staff. In the emergency room, her oxygen saturation was initially 91%. EKG was performed, which also found the patient to be in atrial flutter at 129 beats per minute, right bundle-branch block is noted, left posterior fascicular block and bifascicular block, QTc interval 498 milliseconds, no acute ischemic change was noted. She was given 125 mg IV Solu-Medrol push as well as Bumex 1 mg IV. Initial cardiac enzymes were negative. The patient's BNP was noted to be 262. Her chest x-ray shows cardiomegaly with slight interval worsening central vascular congestion as well as bilateral interstitial opacities, there is a right pleural effusion, findings are suggestive of early CHF. Last 2D echocardiogram in 11/2016 showed LVEF of 30% to 35%, moderate MR and TR, rpjq-rs-[id number] VT, and RVSP of 29 mmHg. We are admitting and evaluating based on the above reasons. At present, she is resting in bed, she denies any complaints of chest pain. She is in no acute respiratory distress. PAST MEDICAL HISTORY 1. Chronic systolic congestive heart failure, EF of 30% to 35%. 2. Multivessel coronary artery disease, status post CABG and porcine Unit #: [id number] #: [id number] Patient: ERUM LEBLANC aortic valve replacement, the patient believes about 2009. 3. Left heart catheterization on 06/20/2014 showed a 99% stenosis in the proximal LAD with Patent STEINBERG. 4. Patent stent in the first marginal of the circ. There was an occluded stent in the anterior division first marginal of the circ of 90%. 5. An 80% stenosis in the mid RCA with an occluded saphenous vein graft to the distal RCA. 6. Repeat cardiac catheterization on 06/23/2014, the patient received direct stent to the right coronary artery, stent to the marginal left circumflex with good results. 7. Lexiscan Cardiolite 2013 was abnormal, which showed no clear defect to suggest previous infarct, there is mid to distal lateral ischemia. 8. A 2D echocardiogram on 11/24/2016 shows LVEF of 30% to 35%. Moderate MR and TR, mild to moderate VT, and RVSP of 29 mmHg. 9. Paroxysmal atrial fib/flutter, on chronic anticoagulation with Coumadin. 10. COPD, on home oxygen therapy. 11. Chronic respiratory failure. 12. Obstructive sleep apnea. 13. Hypertension. 14. Hyperlipidemia. 15. Diabetes mellitus. 16. Rheumatoid arthritis. 17. Osteoporosis. 18. Chronic kidney disease. 19. History of lymphoma. 20. Fatty liver disease. 21. History of gastroparesis. PAST SURGICAL HISTORY 1. Coronary artery bypass grafting and a porcine aortic valve replacement in 2009. 2. Multiple cardiac stents. 3. . 4. Hemorrhoidectomy. 5. Right knee repair. 6. Cataract surgery. 7. Lung biopsy. 8. Lithotripsy. SOCIAL HISTORY The patient lives with her . She uses a walker for ambulation purposes. She is currently awaiting wheelchair. She quit tobacco many years ago. Denies illicit drugs or alcohol. FAMILY HISTORY Denies any family history of cardiovascular disease. ALLERGIES No known drug allergies. REVIEW OF SYSTEMS Negative except for what was stated above in the HPI. HOME MEDICATIONS 1. Albuterol 2 puffs inhalation q.4 hours p.r.n. 2. Fosamax 70 mg p.o. weekly. 3. Zyloprim 100 mg p.o. daily. Unit #: [id number] #: [id number] Patient: ERUM LEBLANC 4. Ascorbic acid 500 mg p.o. daily. 5. Aspirin 81 mg p.o. daily. 6. Symbicort 80/4.5 inhalation twice daily. 7. Bumex 2 mg p.o. b.i.d. 8. Celexa 20 mg p.o. daily. 9. Colace 100 mg p.o. b.i.d. 10. Ferrous sulfate 325 mg p.o. b.i.d. 11. Flonase 50 mcg inhalation daily each nostril. 12. Folic acid 1 mg p.o. daily. 13. Plaquenil 200 mg p.o. b.i.d. 14. NovoLog sliding scale. 15. Imdur ER 120 mg p.o. daily. 16. Synthroid 50 mcg p.o. daily. 17. Mag-Ox 400 mg p.o. b.i.d. 18. Metformin 500 mg p.o. b.i.d. 19. Methotrexate 2.5 mg p.o. weekly. 20. Toprol-XL 25 mg p.o. daily. 21. Niacin ER 500 mg p.o. b.i.d. 22. Nitroglycerin 0.4 mg sublingual p.r.n. 23. Zantac 150 mg p.o. b.i.d. 24. Zocor 40 mg p.o. at bedtime. 25. Theophylline 200 mg p.o. b.i.d. 26. Tramadol 50 mg p.o. t.i.d. 27. Coumadin 5 mg p.o. daily. 28. Lantus 50 units subcu at bedtime. PHYSICAL EXAMINATION GENERAL: This is a pleasant 76-year-old female. She is currently in no acute distress. She is a poor historian. VITAL SIGNS: Temperature 97.3, respiratory rate 22, pulse 133, blood pressure 114/79, and oxygen saturation 97% on 3 L nasal cannula. HEENT: Head is atraumatic and normocephalic. Pupils are equal and round. NECK: Trachea is midline. No lymphadenopathy or JVD. Carotid upstrokes are normal. CARDIOVASCULAR: S1 and S2. Irregularly irregular. No murmurs, gallops, or rubs. LUNGS: Scattered wheezing is noted. Bibasilar rales are present. ABDOMEN: Distended. Tense abdominal wall. Bowel sounds are present. Unable to palpate for hepatosplenomegaly. EXTREMITIES: Pulses are palpable. No clubbing or cyanosis. 1 to 2+ lower extremity edema is present. NEUROLOGIC: She is awake, alert, and oriented. She is somewhat of a poor historian, but moves all extremities equal and follows commands. DIAGNOSTIC STUDIES LABORATORY RESULTS: Hemoglobin 12.9, hematocrit 40.8, WBCs 7.3, and platelet count 200. PT 13.5 and INR 1.2. BNP 262. Sodium 139, potassium 5.3, chloride 97, CO2 of 32, BUN 36, creatinine 1.3, and glucose of 319. Point of care troponin was negative. IMAGING STUDIES: CT of the abdomen and pelvis shows no evidence of lymphadenopathy in the abdomen or pelvis. No free fluid. CT of the chest shows development of small bilateral pleural effusions. Small pulmonary nodules in both lungs, which are similar to prior study of 08/15/2016. Unit #: [id number] #: [id number] Patient: ERUM LEBLANC Chest x-ray shows cardiomegaly with slight interval worsening central vascular congestion, bilateral interstitial opacities, there is a right pleural effusion. Findings are suggestive of early CHF. CARDIOVASCULAR STUDIES: EKG shows atrial flutter at a rate of 128 beats per minute. Right bundle-branch block is present. Left posterior fascicular block. No acute ischemic change is noted. IMPRESSION 1. Acute on chronic systolic congestive heart failure, last ejection fraction was 30% to 35%. 2. Atrial fibrillation/flutter with 2:1 conduction, on anticoagulation with Coumadin; however, INR is subtherapeutic. 3. Subtherapeutic INR of 1.2 on admission. 4. Acute on chronic kidney disease. 5. Acute on chronic respiratory failure. 6. History of coronary artery bypass grafting and porcine aortic valve replacement in 2009. 7. Hypertension. 8. Hyperlipidemia. 9. Type 2 diabetes mellitus. 10. Obstructive sleep apnea. 11. Morbid obesity. 12. History of lymphoma. 13. Rheumatoid arthritis. 14. Fatty liver disease. PLAN The patient came in with atrial fibrillation/flutter and a subtherapeutic INR. Her Lovenox has been discontinued. The patient has significant abdominal distention and was complaining of pain with the injection therapy. She will be started on Eliquis 2.5 mg p.o. b.i.d., the first dose to be given now. It is unsure about the patient's compliance regarding Coumadin dosing; therefore, we will try to initiate novel agent therapy. She will also be started on dobutamine at 2.5 mcg per kg per minute in order to increase cardiac output and obtain fluid removal. We will also ask Renal to consult and Dr. Casiano to consult for acute respiratory failure. We will check bladder scan and place Lizarraga catheter as well. The patient's chest pain could very well be related to her atrial flutter. However, we will go ahead and trend cardiac enzymes to rule out any acute coronary syndrome. We will also check TSH, CBC, BMP, and magnesium levels in the a.m. and also repeat EKG in the a.m. She is also going to be placed on strict I's and O's, daily weights as well as IV diuresis. Thank you for asking us to see this pleasant patient. We appreciate the consult. Dictated by... Belen Robison A.P.R.N. LMW/modl TD: 07/20/2017 12:29 JOB #: [id number] Unit #: [id number] #: [id number] Patient: TORRES LEBLANCCHASE SHULTZ CONSULTATION REPORT Page 1 of 1 X Belen Robison APRN X CONSULTATION REPORT
--- NOTE | ~2017-07-18 | CR63 ---
[facility] A Service of [facility] & [facility] RADIOLOGY TEXT RESULTS PATIENT: ERUM LEBLANC [facility] 569-01 : 39 UNIT #: [id number] AGE: [address]: Mani De Leon MD SEX: F ORDER DR: [id number] [facility] [address] [place], [place] [address] [id number] I MR#: [id number] Acc #: [id number] NAME: ERUM LEBLANC : 1940 SEX: F STUDY DATE/TIME: 07/24/2017 18:59 [facility]IT[facility] ROOM: [facility] STUDY DESCRIPTION: CR Chest 2 View Attending Physician: Mani De Leon M.D. Ordering Physician: Ba Zuniga M.D. Primary Care Physician: Mani De Leon M.D. MEDICAL IMAGING REPORT This report is preliminary unless electronic signature is present EXAM 2 views of the chest. COMPARISON July 18, 2017, November 30, 2016. INDICATION 76-year-old female with dyspnea for 1 week. History of hypertension, COPD and CHF. FINDINGS Exam is extremely limited by patient body habitus and related under penetration. There is likely stable loculated small to moderate right pleural effusion with likely stable layering small to moderate left pleural effusion. Cardiomegaly is grossly unchanged. There is likely stable mediastinal widening when allowing for apical lordotic positioning. 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 No evidence of sternotomy dehiscence. Aortic valve prosthesis is also noted. There is cephalization of pulmonary vasculature, pulmonary vascular indistinctness with interstitial opacities throughout the lungs, grossly unchanged from July 18, 2017, perhaps reflecting pulmonary edema. IMPRESSION 1. Extremely limited exam due to technical factors and patient body habitus. Overall the chest appears grossly stable from July 18, 2017 with bilateral small to moderate pleural effusions and confluent opacification of the left lung base possibly reflecting asymmetric atelectasis or pulmonary edema with a background of interstitial opacities in the setting of cardiomegaly, which would seem to reflect pulmonary interstitial edema. 2. Prior CABG and aortic valve replacement again noted. Gas containing structure seen bilaterally, just to the right of midline, overlapping the diaphragm, possibly reflecting gas within the stomach or possibly STS. [facility] A Service of [facility] RADIOLOGY TEXT RESULTS PATIENT: ERUM LEBLANC LOCATION: [facility] 569-01 : [birth year] UNIT #: [id number] AGE: [address]: Mani De Leon MD SEX: F ORDER DR: reflecting moderate sized gas containing hiatal hernia. Dictated by... John Millard M.D. THIS IS AN ELECTRONICALLY VERIFIED REPORT John Millard M.D. at 07/27/2017 1:50 PM BLM/gz TD: 07/25/2017 10:17 JOB #: [id number] MEDICAL IMAGING REPORT Page 1 of 1 COPY
--- NOTE | ~2017-07-18 | EKG ---
PATIENT: ERUM LEBLANC UNIT #: [id number] Ventricular Rate: 134 BPM Atrial Rate: 136 BPM P-R Interval: 176 ms QRS Duration: 124 ms Q-T Interval: 286 ms QTC Calculation(Bezet): 427 ms Calculated R [place]: 168 degrees Calculated T [place]: 15 degrees Diagnosis Line: Sinus tachycardia Diagnosis Line: Right bundle branch block Diagnosis Line: Left posterior fascicular block Diagnosis Line: Bifascicular block Diagnosis Line: Abnormal ECG Diagnosis Line: When compared with ECG of 25-NOV-2016 06:05, Diagnosis Line: Sinus rhythm has replaced Atrial flutter Diagnosis Line: Right bundle branch block is now Present Diagnosis Line: Confirmed by NATALIA BROWN MD ([id number]) on Diagnosis Line: 07/21/2017 10:48:25 AM INTERPRETING MD: STEPHANIE MONACO
--- NOTE | ~2017-07-18 | EKG ---
PATIENT: ERUM LEBLANC UNIT #: [id number] Ventricular Rate: 129 BPM Atrial Rate: 129 BPM P-R Interval: 142 ms QRS Duration: 136 ms Q-T Interval: 340 ms QTC Calculation(Bezet): 498 ms P [place]: 103 degrees Calculated R [place]: 176 degrees Diagnosis Line: Diagnosis Line: Atrial flutter with 2 to 1 block Diagnosis Line: Right bundle branch block Diagnosis Line: Left posterior fascicular block Diagnosis Line: Bifascicular block Diagnosis Line: Abnormal ECG Diagnosis Line: When compared with ECG of 19-JUL-2017 08:18, Diagnosis Line: (unconfirmed) Diagnosis Line: No significant change was found Diagnosis Line: Confirmed by CYN AGUILAR MD ([id number]) on 07/26/2017 Diagnosis Line: 7:23:33 AM INTERPRETING MD: LAUREN MONACO
--- NOTE | ~2017-07-18 | EKG ---
PATIENT: ERUM LEBLANC UNIT #: [id number] Ventricular Rate: 98 BPM Atrial Rate: 256 BPM QRS Duration: 106 ms Q-T Interval: 318 ms QTC Calculation(Bezet): 405 ms Calculated R [place]: 141 degrees Calculated T [place]: -55 degrees Diagnosis Line: Atrial flutter with variable A-V block Diagnosis Line: Left posterior fascicular block Diagnosis Line: T wave abnormality, consider lateral ischemia Diagnosis Line: Abnormal ECG Diagnosis Line: When compared with ECG of 19-JUL-2017 11:48, Diagnosis Line: (unconfirmed) Diagnosis Line: Right bundle branch block is no longer Present Diagnosis Line: Confirmed by CYN AGUILAR MD ([id number]) on 07/26/2017 Diagnosis Line: 7:27:07 AM INTERPRETING MD: LAUREN MONACO
--- NOTE | ~2017-07-18 | CR72 ---
[facility] A Service of [facility] RADIOLOGY TEXT RESULTS PATIENT: ERUM LEBLANC LOCATION: [facility] 569-01 : 39 UNIT #: [id number] AGE: [address]: Mani De Leon MD SEX: F ORDER DR: [id number] [facility] [address] [place], [place] [address] [id number] I MR#: [id number] Acc #: [id number] NAME: ERUM LEBLANC : 1940 SEX: F STUDY DATE/TIME: 07/18/2017 21:13 UNIT: [facility] ROOM: [facility] STUDY DESCRIPTION: CR Chest Single View Portable Attending Physician: Mani De Leon M.D. Ordering Physician: Jamal Steele M.D. Primary Care Physician: Mani De Leon M.D. MEDICAL IMAGING REPORT This report is preliminary unless electronic signature is present EXAM Portable chest 07/18/2017. HISTORY 76-year-old female with shortness of air and chest pain for 1 week. COMPARISON Chest 11/30/2016. FINDINGS Frontal chest demonstrates cardiomegaly with slight worsening central vascular congestion and bilateral interstitial opacities. Right pleural effusion is suspected. No pneumothorax. Median sternotomy wires. IMPRESSION Cardiomegaly with slight interval worsening central vascular congestion and bilateral interstitial opacities. There is a right pleural effusion. Findings suggestive of early congestive failure in the appropriate clinical. Dictated by... Tarik Rushing M.D. THIS IS AN ELECTRONICALLY VERIFIED REPORT Tarik Rushing M.D. at 07/19/2017 3:18 PM JARRETT/marquise TD: 07/19/2017 10:08 JOB #: [id number] MEDICAL IMAGING REPORT Page 1 of 1 COPY
--- NOTE | ~2017-07-18 | EKG ---
PATIENT: ERUM LEBLANC UNIT #: [id number] Ventricular Rate: 97 BPM Atrial Rate: 102 BPM QRS Duration: 156 ms Q-T Interval: 398 ms QTC Calculation(Bezet): 505 ms Calculated R [place]: 162 degrees Calculated T [place]: 60 degrees Diagnosis Line: Atrial fibrillation Diagnosis Line: Right bundle branch block Diagnosis Line: Left posterior fascicular block Diagnosis Line: Bifascicular block Diagnosis Line: Abnormal ECG Diagnosis Line: When compared with ECG of 22-JUL-2017 05:57, Diagnosis Line: (unconfirmed) Diagnosis Line: No significant change was found Diagnosis Line: Confirmed by CYN AGUILAR MD ([id number]) on 07/26/2017 Diagnosis Line: 7:47:12 AM INTERPRETING MD: LAUREN MONACO
[~2017-07-18 20:25] MED LIST changes: -ALBUTEROL20 ml INH; -ASCORBIC ACID500 M3 PO; -BUMEX IVP; -CELEXA20 M1 PO; -COUMADIN5 MG PO; -DOCUSATE SODIU100 MG PO; -ELIQUIS2.5 MG PO; -FLONASE ALLERG9.9 ML INH; -FOSAMAX70 MG PO; -HYDRALAZINE HCL25 MG PO; -LOPRESSOR PO; -METOPROLOL SUCC25 MG PO; -NOVOLOG100 UNITS/ SUBQ; -PACERONE PO; -THEOPHYLLINE A200 M1 PO
[2017-07-18 21:31] LABS: BASOPHIL# 0.1 X10e3 (0-0.3); EOSINOPHIL# 0.1 X10e3 (0-0.7); HEMATOCRIT 40.8 % (35.0-45.0); HEMOGLOBIN 12.9 gm/dL (12.0-16.0); LYMPHOCYTE# 2.5 X10e3 (1.0-3.5); LYMPHOCYTE% 34.1 % (17.0-45.0); MEAN CORPUSCULAR HEMOGLOBIN 30.2 PG (28-34); MEAN CORPUSCULAR HGB CONC 31.8 g/dL (30-36); MEAN PLATELET VOLUME 7.7 FL (6.5-11.5); MONOCYTE# 0.8 X10e3 (0-1.0); MONOCYTE% 10.5 % (3.0-12.0); NEUTROPHIL# 3.9 X10e3 (1.5-7.1); NEUTROPHIL% 53.4 % (40-75); PLATELET COUNT 200 X10e3 (140-420); RED BLOOD COUNT 4.29 X10e (3.90-5.30); RED CELL DISTRIBUTION WIDTH 17.1 % (11.0-15.5); WHITE BLOOD COUNT 7.3 X10e3 (4.0-10.5)
[2017-07-18 21:32] LABS: DIFF IND NO
[2017-07-18 21:48] LABS: INR 1.3; PROTHROMBIN TIME (PATIENT) 14.5 SECONDS (10.0-11.7)
[2017-07-18 21:58] LABS: ALBUMIN SERUM 3.3 g/dL (3.5-5.0); BILIRUBIN, DIRECT 0.1 mg/dL (0.0-0.2); BILIRUBIN,INDIRECT 0.4 mg/dL (0.0-0.9); BILIRUBIN,TOTAL 0.5 mg/dL (0.2-2.0); BUN/CREATININE RATIO 38.88; CALCIUM SERUM 9.6 mg/dL (8.4-10.2); CREATININE SERUM 0.9 mg/dL (0.6-1.4); GLOM FILT RATE Estimated 61.7 mL/min (>60); POTASSIUM 4.4 mmol/L (3.5-5.1); PROTEIN TOTAL SERUM 6.8 g/dL (6.0-8.3)
[2017-07-18 22:21] LABS: POC - CKMB <1.0 ng/mL (0.0-7.9); POC - TROPONIN <0.05 ng/mL (<=0.05)
[2017-07-18 23:03] LABS: POC - CKMB <1.0 ng/mL (0.0-7.9); POC - TROPONIN <0.05 ng/mL (<=0.05)
[2017-07-18] MEDS ORDERED: SYMBICORT80 INH (23:56)
[2017-07-18] MEDS ORDERED: GLUCOPHAGE500 MG PO (23:57)
[2017-07-18] MEDS ORDERED: METOPROLOL SUCC25 MG PO (23:59)
[2017-07-19] MEDS ORDERED: ALBUTEROL20 ml INH (02:14)
[2017-07-19] MEDS ORDERED: FOSAMAX70 MG PO (02:17)
[2017-07-19] MEDS ORDERED: ZYLOPRIM100 MG PO (02:17)
[2017-07-19] MEDS ORDERED: ASCORBIC ACID500 M3 PO (02:18)
[2017-07-19] MEDS ORDERED: ASPIRIN81 M2 PO (02:18)
[2017-07-19] MEDS ORDERED: SYMBICORT80 INH (02:19)
[2017-07-19] MEDS ORDERED: BUMEX IVP (02:20)
[2017-07-19] MEDS ORDERED: DOCUSATE SODIU100 MG PO (02:22)
[2017-07-19] MEDS ORDERED: CELEXA20 M1 PO (02:22)
[2017-07-19] MEDS ORDERED: FERROUS SULFATE PO (02:23)
[2017-07-19] MEDS ORDERED: FLONASE ALLERG9.9 ML INH (02:24)
[2017-07-19] MEDS ORDERED: FOLIC ACID1 MG PO (02:25)
[2017-07-19] MEDS ORDERED: PLAQUENIL200 MG PO (02:25)
[2017-07-19] MEDS ORDERED: NOVOLOG100 UNITS/ SUBQ (02:27)
[2017-07-19] MEDS ORDERED: IMDUR-ER60 M1 PO (02:28)
[2017-07-19] MEDS ORDERED: SYNTHROID PO (02:28)
[2017-07-19] MEDS ORDERED: MAG-OX 400400 M1 PO (02:29)
[2017-07-19] MEDS ORDERED: METFORMIN HCL500 M1 PO (02:30)
[2017-07-19] MEDS ORDERED: METHOTREXATE2.5 MG PO (02:31)
[2017-07-19] MEDS ORDERED: TOPROL XL PO (02:31)
[2017-07-19] MEDS ORDERED: NIACIN ER500 MG PO (02:32)
[2017-07-19] MEDS ORDERED: NITROGLYCERIN0.4 MG SL (02:34)
[2017-07-19] MEDS ORDERED: ZANTAC150 MG PO (02:34)
[2017-07-19] MEDS ORDERED: ZOCOR PO (02:35)
[2017-07-19] MEDS ORDERED: TRAMADOL HCL50 M1 PO (02:36)
[2017-07-19] MEDS ORDERED: THEOPHYLLINE A200 M1 PO (02:36)
[2017-07-19] MEDS ORDERED: COUMADIN5 MG PO (02:37)
[2017-07-19] MEDS ORDERED: LANTUS100 U/ML SUBQ (02:44)
[2017-07-19 05:29] LABS: ARTERIAL BLOOD GAS ALLEN TEST NORMAL; ARTERIAL BLOOD GAS ART SITE RIGHT RADIAL; ARTERIAL BLOOD GAS CARBOXY HB 1.1 %sat (0.0-9.0); ARTERIAL BLOOD GAS DELIVERY NASAL CANNULA; ARTERIAL BLOOD GAS HCO3 37.1 mmol/L; ARTERIAL BLOOD GAS MET HB 0.5 %sat (0.0-2.0); ARTERIAL BLOOD GAS PCO2 55.1 mmHg (35.0-45.0); ARTERIAL BLOOD GAS pH 7.437 (7.350-7.450); ARTERIAL DRAW? YES
[2017-07-19 08:12] LABS: BUN/CREATININE RATIO 27.69; CALCIUM SERUM 9.7 mg/dL (8.4-10.2); CREATININE SERUM 1.3 mg/dL (0.6-1.4); GLOM FILT RATE Estimated 39.5 mL/min (>60); POTASSIUM 5.3 mmol/L (3.5-5.1)
[2017-07-19 08:15] LABS: INR 1.2; PROTHROMBIN TIME (PATIENT) 13.5 SECONDS (10.0-11.7)
[2017-07-19 09:45] LABS: AMYLASE 27 U/L (0-46); LIPASE 23 U/L (22-51)
[2017-07-19 09:46] LABS: THEOPHYLLINE <2 ug/dL (10-20)
[2017-07-19 12:01] LABS: CK TOTAL 14 IU/L (26-140)
[2017-07-19 18:04] LABS: CK TOTAL 15 IU/L (26-140)
[2017-07-19 18:39] LABS: URINE APPEARANCE CLOUDY; URINE BILIRUBIN NEG (NEG); URINE BLOOD 3+ (NEG); URINE COLOR YELLOW; URINE GLUCOSE 100 MG/DL (NEG); URINE KETONE NEG (NEG); URINE LEUKOCYTE ESTERASE 3+ (NEG); URINE NITRATE NEG (NEG); URINE PROTEIN NEG (NEG); URINE SPECIFIC GRAVITY 1.011 (1.003-1.035); URINE UROBILINOGEN 0.2 MG/DL (NEG)
[2017-07-19 18:40] LABS: URBCS1 AUWI 100-200 /[HPF] (0-2); URINE BACTERIA AUWI 4+ (NEGATIVE); URINE SQUAMOUS EPITHELIAL CELL NONE SEEN /[HPF]; UWBCS1 AUWI 100-200 (0-5)
[2017-07-19 18:59] LABS: CREATININE,RANDOM URINE 29 mg/dL; TOTAL PROTEIN,RANDOM URINE <10 mg/dl (<10)
[2017-07-20 06:41] LABS: HEMATOCRIT 39.3 % (35.0-45.0); HEMOGLOBIN 12.4 gm/dL (12.0-16.0); MEAN CELL VOLUME 95.9 FL (83-96); MEAN CORPUSCULAR HEMOGLOBIN 30.4 PG (28-34); MEAN CORPUSCULAR HGB CONC 31.7 g/dL (30-36); MEAN PLATELET VOLUME 7.9 FL (6.5-11.5); RED BLOOD COUNT 4.1 X10e (3.90-5.30); RED CELL DISTRIBUTION WIDTH 17.3 % (11.0-15.5); WHITE BLOOD COUNT 9.6 X10e3 (4.0-10.5)
[2017-07-20 06:47] LABS: BUN/CREATININE RATIO 30.66; CALCIUM SERUM 9.1 mg/dL (8.4-10.2); CREATININE SERUM 1.5 mg/dL (0.6-1.4); GLOM FILT RATE Estimated 33.3 mL/min (>60); PHOSPHOROUS 3.2 mg/dL (2.5-4.6); POTASSIUM 4.5 mmol/L (3.5-5.1)
[2017-07-21 03:20] LABS: HEMATOCRIT 38.7 % (35.0-45.0); HEMOGLOBIN 12.4 gm/dL (12.0-16.0); MEAN CELL VOLUME 94.4 FL (83-96); MEAN CORPUSCULAR HEMOGLOBIN 30.2 PG (28-34); MEAN PLATELET VOLUME 7.4 FL (6.5-11.5); RED BLOOD COUNT 4.09 X10e (3.90-5.30); WHITE BLOOD COUNT 12.2 X10e3 (4.0-10.5)
[2017-07-21 03:51] LABS: BUN/CREATININE RATIO 30.66; CALCIUM SERUM 8.8 mg/dL (8.4-10.2); CREATININE SERUM 1.5 mg/dL (0.6-1.4); GLOM FILT RATE Estimated 33.3 mL/min (>60); MAGNESIUM 2.2 mg/dL (1.6-3.0); POTASSIUM 4.9 mmol/L (3.5-5.1)
[2017-07-21 04:02] LABS: CK TOTAL 20 IU/L (26-140)
[2017-07-21 06:44] LABS: INR 1.1; PROTHROMBIN TIME (PATIENT) 12.1 SECONDS (10.0-11.7)
[2017-07-22 06:10] LABS: HEMATOCRIT 38.3 % (35.0-45.0); HEMOGLOBIN 12.4 gm/dL (12.0-16.0); MEAN CELL VOLUME 94.4 FL (83-96); MEAN CORPUSCULAR HEMOGLOBIN 30.4 PG (28-34); MEAN CORPUSCULAR HGB CONC 32.2 g/dL (30-36); MEAN PLATELET VOLUME 7.5 FL (6.5-11.5); RED BLOOD COUNT 4.06 X10e (3.90-5.30); RED CELL DISTRIBUTION WIDTH 17.1 % (11.0-15.5); WHITE BLOOD COUNT 11.2 X10e3 (4.0-10.5)
[2017-07-22 06:20] LABS: INR 1.1
[2017-07-22 06:49] LABS: BUN/CREATININE RATIO 37.85; CALCIUM SERUM 8.5 mg/dL (8.4-10.2); CREATININE SERUM 1.4 mg/dL (0.6-1.4); GLOM FILT RATE Estimated 36.1 mL/min (>60); MAGNESIUM 2.3 mg/dL (1.6-3.0); POTASSIUM 4.8 mmol/L (3.5-5.1)
[2017-07-23 07:02] LABS: HEMATOCRIT 37.7 % (35.0-45.0); HEMOGLOBIN 12.3 gm/dL (12.0-16.0); MEAN CELL VOLUME 93.9 FL (83-96); MEAN CORPUSCULAR HEMOGLOBIN 30.7 PG (28-34); MEAN CORPUSCULAR HGB CONC 32.6 g/dL (30-36); MEAN PLATELET VOLUME 7.6 FL (6.5-11.5); RED BLOOD COUNT 4.01 X10e (3.90-5.30); RED CELL DISTRIBUTION WIDTH 16.8 % (11.0-15.5); WHITE BLOOD COUNT 10.9 X10e3 (4.0-10.5)
[2017-07-23 07:30] LABS: BUN/CREATININE RATIO 47.14; CALCIUM SERUM 8.4 mg/dL (8.4-10.2); CREATININE SERUM 1.4 mg/dL (0.6-1.4); GLOM FILT RATE Estimated 36.1 mL/min (>60); MAGNESIUM 2.4 mg/dL (1.6-3.0); POTASSIUM 4.7 mmol/L (3.5-5.1)
[2017-07-24 06:40] LABS: HEMATOCRIT 38.7 % (35.0-45.0); HEMOGLOBIN 12.1 gm/dL (12.0-16.0); MEAN CELL VOLUME 95.7 FL (83-96); MEAN CORPUSCULAR HGB CONC 31.3 g/dL (30-36); MEAN PLATELET VOLUME 7.8 FL (6.5-11.5); RED BLOOD COUNT 4.04 X10e (3.90-5.30); RED CELL DISTRIBUTION WIDTH 16.7 % (11.0-15.5); WHITE BLOOD COUNT 11.3 X10e3 (4.0-10.5)
[2017-07-24 07:14] LABS: BUN/CREATININE RATIO 46.25; CALCIUM SERUM 8.3 mg/dL (8.4-10.2); CREATININE SERUM 1.6 mg/dL (0.6-1.4); GLOM FILT RATE Estimated 30.8 mL/min (>60); MAGNESIUM 2.7 mg/dL (1.6-3.0); POTASSIUM 4.7 mmol/L (3.5-5.1)
[2017-07-25 06:55] LABS: HEMOGLOBIN 13.4 gm/dL (12.0-16.0); MEAN CELL VOLUME 93.8 FL (83-96); MEAN CORPUSCULAR HEMOGLOBIN 30.6 PG (28-34); MEAN CORPUSCULAR HGB CONC 32.6 g/dL (30-36); MEAN PLATELET VOLUME 8.2 FL (6.5-11.5); RED BLOOD COUNT 4.37 X10e (3.90-5.30); RED CELL DISTRIBUTION WIDTH 16.9 % (11.0-15.5); WHITE BLOOD COUNT 9.8 X10e3 (4.0-10.5)
[2017-07-25 08:07] LABS: CALCIUM SERUM 8.4 mg/dL (8.4-10.2); CREATININE SERUM 1.9 mg/dL (0.6-1.4); MAGNESIUM 2.9 mg/dL (1.6-3.0); PHOSPHOROUS 4.3 mg/dL (2.5-4.6); POTASSIUM 5.1 mmol/L (3.5-5.1)
[2017-07-26 06:30] LABS: CREATININE SERUM 1.7 mg/dL (0.6-1.4); GLOM FILT RATE Estimated 28.6 mL/min (>60)
[2017-07-26 06:47] LABS: BUN/CREATININE RATIO 51.66; CALCIUM SERUM 8.3 mg/dL (8.4-10.2); CREATININE SERUM 1.8 mg/dL (0.6-1.4); GLOM FILT RATE Estimated 26.7 mL/min (>60); POTASSIUM 4.9 mmol/L (3.5-5.1)
[2017-07-26 13:54] LABS: URINE APPEARANCE CLEAR; URINE BILIRUBIN NEG (NEG); URINE BLOOD NEG (NEG); URINE COLOR YELLOW; URINE GLUCOSE NEG (NEG); URINE KETONE NEG (NEG); URINE LEUKOCYTE ESTERASE 1+ (NEG); URINE NITRATE NEG (NEG); URINE PROTEIN TRACE (NEG); URINE SPECIFIC GRAVITY 1.019 (1.003-1.035); URINE UROBILINOGEN 0.2 MG/DL (NEG)
[2017-07-26 13:57] LABS: CULTURE INDICATED? YES; URBCS1 AUWI 0-2 /[HPF] (0-2); URINE BACTERIA AUWI NEG (NEGATIVE); URINE SQUAMOUS EPITHELIAL CELL FEW /[HPF]
[2017-07-27 07:36] LABS: BUN/CREATININE RATIO 51.25; CALCIUM SERUM 8.3 mg/dL (8.4-10.2); CREATININE SERUM 1.6 mg/dL (0.6-1.4); GLOM FILT RATE Estimated 30.8 mL/min (>60); POTASSIUM 4.5 mmol/L (3.5-5.1)
[2017-07-28 07:50] LABS: BUN/CREATININE RATIO 46.25; CALCIUM SERUM 8.4 mg/dL (8.4-10.2); CREATININE SERUM 1.6 mg/dL (0.6-1.4); GLOM FILT RATE Estimated 30.8 mL/min (>60); POTASSIUM 5.2 mmol/L (3.5-5.1)
[2017-07-28] MEDS ORDERED: PACERONE PO (18:31)
[2017-07-28] MEDS ORDERED: LOPRESSOR PO (18:31)
[2017-07-28] MEDS ORDERED: HYDRALAZINE HCL25 MG PO (18:32)
[2017-07-28] MEDS ORDERED: BUMEX2 MG PO (18:33)
[2017-07-28] MEDS ORDERED: ELIQUIS2.5 MG PO (18:34)
== END 2017-07-28 19:31 | disposition home health service (06) | DRG 291 ==
LOC: CED 20:25 → CEDOF 07-19 00:45 → CED 07-19 00:45 → CEDOF 07-19 00:50 → CED 07-19 00:50 → CEDOF 07-19 03:58 → C5C 07-19 03:58 → CEDOF 07-21 12:30 → C5C 07-21 12:30
PROVIDERS: Internal Medicine; Internal Medicine Cardiovascular Disease; Internal Medicine Nephrology
PROC: 05HC33Z Insertion of Infusion Device into Left Basilic Vein, Percutaneous Approach (ICD-10-PCS; principal; 2017-07-23)
DX: I13.0 Hypertensive heart and chronic kidney disease with heart failure and stage 1 through stage 4 chronic kidney disease, or unspecified chronic kidney disease (principal); I50.23 Acute on chronic systolic (congestive) heart failure; J96.20 Acute and chronic respiratory failure, unspecified whether with hypoxia or hypercapnia; N17.9 Acute kidney failure, unspecified; E87.3 Alkalosis; J44.1 Chronic obstructive pulmonary disease with (acute) exacerbation; E11.22 Type 2 diabetes mellitus with diabetic chronic kidney disease; E11.649 Type 2 diabetes mellitus with hypoglycemia without coma; I48.92 Unspecified atrial flutter; N39.0 Urinary tract infection, site not specified; K31.84 Gastroparesis; N18.3 Chronic kidney disease, stage 3 (moderate); Z79.4 Long term (current) use of insulin; Z87.891 Personal history of nicotine dependence; Z99.81 Dependence on supplemental oxygen; I25.10 Atherosclerotic heart disease of native coronary artery without angina pectoris; Z95.1 Presence of aortocoronary bypass graft; Z95.5 Presence of coronary angioplasty implant and graft; Z95.2 Presence of prosthetic heart valve; M06.9 Rheumatoid arthritis, unspecified; G47.33 Obstructive sleep apnea (adult) (pediatric); E78.5 Hyperlipidemia, unspecified; E03.9 Hypothyroidism, unspecified; K76.0 Fatty (change of) liver, not elsewhere classified; B96.20 Unspecified Escherichia coli [E. coli] as the cause of diseases classified elsewhere; Z16.12 Extended spectrum beta lactamase (ESBL) resistance; I48.0 Paroxysmal atrial fibrillation; Z79.01 Long term (current) use of anticoagulants; E66.9 Obesity, unspecified; Z68.37 Body mass index [BMI] 37.0-37.9, adult; I45.10 Unspecified right bundle-branch block; E87.5 Hyperkalemia; R60.1 Generalized edema; I25.5 Ischemic cardiomyopathy; Z85.72 Personal history of non-Hodgkin lymphomas
CPT/HCPCS: 36415; 36600; 71010; 71020; 74176; 80048; 80076; 80198; 81003; 82150; 82550; 82553; 82565; 82570; 82803; 82947; 83690; 83735; 83880; 84100; 84156; 84443; 84484; 85025; 85027; 85610; 85730; 87086; 87088; 87186; 93005; 94640; 94664; 94760; 96374; 97110; 97116; 97162; 97167; 97530; 97535; 99285; G8978-GP; G8979-GP; G8987-GO; G8988-GO; G8989-GO; J0282; J0696; J1250; J1815; J2185; J2920; J2930